=== PATIENT | female | born 1990 | race Caucasian/White ===

== ENCOUNTER 2021-06-17 14:34 | Inpatient (IN) ==
[2021-06-17] MEDS ORDERED: Metoclopramide 10 MG/2 ML VIAL IVP PRN (14:46)
[2021-06-17] MEDS ORDERED: *HR* Nalbuphine 10 MG/ML AMPUL IV PRN (14:46)
[2021-06-17] MEDS ORDERED: Naloxone 0.4 MG/ML INJ IVP PRN (14:46)
[2021-06-17] MEDS ORDERED: Azithromycin 500 MG in 0.9 % Sodium Chloride 250 ML IVPB PRN (14:46)
[2021-06-17] MEDS ORDERED: Ondansetron 4 MG/2 ML VIAL IVP PRN (14:46)
[2021-06-17] MEDS ORDERED: Famotidine 20 MG/2 ML VIAL IVP PRN (14:46)
[2021-06-17 15:59] LABS: Basophils # 0.1 K/mcL (0.0-0.2); Basophils % 0.6 %; Eosinophils # 0.3 K/mcL (0.0-0.6); Eosinophils % 2.1 %; Hematocrit 38.2 % (35.3-44.9); Hemoglobin 12.9 g/dL (11.5-15.4); Immature Granulocytes % 0.9 % (0-4); Lymphocytes # 2.8 K/mcL (0.6-4.6); Lymphocytes % 20.9 %; Mean Corpuscular HGB Conc 33.8 g/dL (31.6-35.5); Mean Corpuscular Hemoglobin 31.5 pg (28.0-33.3); Mean Corpuscular Volume 93.4 fL (83.0-100.0); Mean Platelet Volume 9.8 fL (9.4-12.4); Monocytes # 1.1 K/mcL (0.0-1.3); Monocytes % 8.3 %; Platelet Count 441 K/mcL (140-400); Red Blood Count 4.09 M/mcL (3.82-4.97); Red Cell Distribution Width 13.2 % (11.5-14.5); Segmented Neutrophils % 67.2 %; White Blood Count 13.4 K/mcL (4.3-11.1)
[2021-06-17] MEDS ORDERED: EPHEDrine 50 MG/ML VIAL IVP PRN (16:01)
[2021-06-17] MEDS ORDERED: Epidural Premix (fent/bupiv) 110 ML EP SCH (16:15)
[2021-06-17 16:32] LABS: Amphetamine Screen,Urine Negative ng/mL (Cutoff=1000); Barbiturate Screen,Urine Negative ng/mL (Cutoff=200); Benzodiazepines Screen,Urine Negative ng/mL (Cutoff=200); Cannabinoid Screen,Urine Negative ng/mL (Cutoff = 50); Cocaine Screen,Urine Negative ng/mL (Cutoff= 300); Influenza A PCR Negative (Negative); Influenza B PCR Negative (Negative); Opiate Screen,Urine Negative ng/mL (Cutoff=300); Phencyclidine Screen,Urine Negative ng/mL (Cutoff=25); Resp. Syncytial Virus PCR Negative (Negative)
[2021-06-17 16:35] LABS: SARS-CoV-2 by PCR (In House) Negative (Negative)
[2021-06-17] MEDS ORDERED: Oxytocin 20 units/ LR 1000 mL 20 UNIT/1,000 ML BAG IVC SCH (16:45)
[2021-06-17] MEDS: Ringers Solution, Lactated 1,000 ML IVC SCH ×2 (18:00→22:21)
[2021-06-18] MEDS ORDERED: *HR* FentaNYL (PF) 100 MCG/2 ML VIAL ONE (03:01)
[2021-06-18] MEDS: Ringers Solution, Lactated 1,000 ML IVC SCH (04:45)
[2021-06-18] MEDS ORDERED: Oxytocin 20 units/ LR 1000 mL 20 UNIT/1,000 ML BAG IVC SCH (08:10)
[2021-06-18] MEDS ORDERED: Lanolin 7 G OINT...G. TP PRN (08:10)
[2021-06-18] MEDS ORDERED: Benzocaine/Menthol 56 GM AEROSOL SPRAY TP PRN (08:10)
[2021-06-18] MEDS ORDERED: Rho Immune Globulin 1,500 UNIT SYRINGE IM PRN (08:10)
[2021-06-18] MEDS ORDERED: Ondansetron ODT 4 MG TAB.RAPDIS SL PRN (08:10)
[2021-06-18] MEDS ORDERED: Measles/Mumps/Rubella Vacc 0.5 ML VIAL SQ PRN (08:10)
[2021-06-18] MEDS: Prenatal Vit/FA 1 EACH TABLET PO SCH (08:33)
[2021-06-18] MEDS: Ibuprofen 600 MG TABLET PO SCH ×2 (08:33→14:58)
[2021-06-18] MEDS: *HR* Buprenorphine HCl 8 MG TAB.SUBL SL SCH ×2 (08:34→20:19)
[2021-06-18] MEDS ORDERED: Methylergonovine 0.2 MG/ML AMPUL IM ONE (17:42)
[2021-06-18] MEDS: Acetaminophen 325 MG TABLET PO SCH (20:19)
[2021-06-19] MEDS: Ibuprofen 600 MG TABLET PO SCH ×2 (00:31→07:43)
[2021-06-19] MEDS: Acetaminophen 325 MG TABLET PO SCH ×2 (03:39→09:53)
[2021-06-19 04:38] LABS: Basophils # 0.1 K/mcL (0.0-0.2); Basophils % 0.6 %; Eosinophils # 0.4 K/mcL (0.0-0.6); Eosinophils % 2.4 %; Hematocrit 31.2 % (35.3-44.9); Immature Granulocytes % 0.7 % (0-4); Lymphocytes # 3.4 K/mcL (0.6-4.6); Lymphocytes % 22.4 %; Mean Corpuscular Hemoglobin 31.9 pg (28.0-33.3); Mean Platelet Volume 9.8 fL (9.4-12.4); Monocytes # 1.5 K/mcL (0.0-1.3); Monocytes % 10.1 %; Neutrophils # 9.8 K/mcL (1.6-8.9); Platelet Count 344 K/mcL (140-400); Red Blood Count 3.32 M/mcL (3.82-4.97); Red Cell Distribution Width 13.2 % (11.5-14.5); Segmented Neutrophils % 63.8 %; White Blood Count 15.3 K/mcL (4.3-11.1)
[2021-06-19 04:40] LABS: Hemoglobin 10.6 g/dL (11.5-15.4)
[2021-06-19] MEDS: *HR* Buprenorphine HCl 8 MG TAB.SUBL SL SCH (07:44)
[2021-06-19] MEDS: Prenatal Vit/FA 1 EACH TABLET PO SCH (07:44)
[2021-06-19 08:12] VITALS: BP 103/56; PULSE 65; TEMP 97.4; O2SAT 93
== END 2021-06-19 12:00 | disposition home or self-care (01) | DRG 560 ==
LOC: 1NENULAB 14:34 → 1NENUOBS 06-18 08:09
PROVIDERS: ADMIT Obstetrics & Gynecology; ATTEND Obstetrics & Gynecology